=== PATIENT | female | born 2000 | race Hispanic/Latino ===

== ENCOUNTER 2022-09-16 06:39 | Day surgery (SDC) | payer BC, OTHER ==
[2022-09-14 09:59] LABS: BASOPHILS % (AUTO) 0.6 % (0.0-5.0); EOSINOPHILS % (AUTO) 1.6 % (0.0-8.0); HEMATOCRIT 42.6 % (36-48); LYMPHOCYTES % (AUTO) 46.2 % (21.0-51.0); MEAN CORPUSCULAR HEMOGLOBIN 28.2 pg (27.0-33.0); MEAN CORPUSCULAR HGB CONC 32.6 g/dL (32.0-36.0); MEAN CORPUSCULAR VOLUME 86.4 fL (79-99); MONOCYTES % (AUTO) 7.1 % (3.0-13.0); NEUTROPHILS % (AUTO) 44.3 % (40.0-77.0); PLATELET COUNT (AUTO) 464 K/uL (130-400); RED BLOOD CELL COUNT(AUTO) 4.93 MIL/uL (4.00-5.50); RED CELL DISTRIBUTION WIDTH 12.5 % (11.0-15.5); WHITE BLOOD COUNT (AUTO) 6.4 K/uL (4.8-10.8)
[2022-09-14 10:16] LABS: ALBUMIN 3.6 g/dL (3.5-5.0); BILIRUBIN,DIRECT 0.1 mg/dL (0.0-0.3); CREATININE 0.8 mg/dL (0.5-1.5); TOTAL PROTEIN, SERUM 7.7 g/dL (6.0-8.3)
[2022-09-14 10:21] LABS: INR 0.93 (0.85-1.15); PROTHROMBIN TIME 9.8 SEC (9.6-11.6)
[2022-09-14 10:23] LABS: PARTIAL THROMBOPLASTIN TIME 28.2 SEC (26.3-35.5)
[2022-09-14 10:28] VITALS: BP 137/88
[~2022-09-16] VITALS: Ht 162.6 cm; Wt 74.8 kg
[2022-09-16] VITALS (16 sets, daily range): BP systolic 125–145; BP diastolic 83–98
[~2022-09-16 06:39] MED LIST: BACITRACIN 28.4 GM OINT TP ONE; EPINEPHRINE PF 1MG (1:1,000) 1 MG/ML AMP ONE; ETON1VAG VG; LIDOCAINE 1%-EPI 1:100,000 20 ML VIAL IJ SCH
[2022-09-16] MEDS ORDERED: HYDROMORPHONE 1 MG INJ ONE (07:10)
[2022-09-16] MEDS ORDERED: GLYCOPYRROLATE 1 MG/5 ML SYRINGE ONE (07:14)
[2022-09-16] MEDS ORDERED: MIDAZOLAM HCL 1 MG/ML 2ML VIAL ONE (07:14)
[2022-09-16] MEDS ORDERED: PROPOFOL 10 MG/ML 20ML VIAL IV ONE ×2 (07:14→10:48)
[2022-09-16] MEDS ORDERED: LIDOCAINE PF 100MG/5ML (2%) SYRINGE 5ML ONE (07:14)
[2022-09-16] MEDS ORDERED: ROCURONIUM 10MG/1ML SYR 10 MG/ML ML ONE (07:15)
[2022-09-16] MEDS ORDERED: FENTANYL CITRATE PF 50 MCG/1 ML 2ML VIAL ONE (07:15)
[2022-09-16] MEDS ORDERED: PHENYLEPHRINE HCL 10 MG/ML 1ML VIAL IV ONE (07:17)
[2022-09-16] MEDS ORDERED: DEXAMETHASONE SOD PHOSPHATE 10MG/ML 1ML VIAL ONE (07:52)
[2022-09-16] MEDS ORDERED: DiphenhydrAMINE HCL 50 MG/ML VIAL ONE (07:52)
[2022-09-16] MEDS ORDERED: ONDANSETRON 4MG INJ ONE (08:16)
[2022-09-16] MEDS ORDERED: NEOSTIGMINE 5MG/5ML SYR IV ONE (08:43)
== END 2022-09-16 13:00 | disposition home or self-care (01) ==
LOC: DAH 06:39
PROVIDERS: ATTEND Otolaryngology Plastic Surgery within the Head & Neck
DX: J34.2 Deviated nasal septum (principal); Z20.822 Contact with and (suspected) exposure to COVID-19; J34.3 Hypertrophy of nasal turbinates; J34.89 Other specified disorders of nose and nasal sinuses; Z79.01 Long term (current) use of anticoagulants
CPT/HCPCS: 80076; 80048; 85025; 85610; 85730; 87426; 81025; 36415; 93005; 30930; 30520; A6260; A4663; A4649 ×2; J1200; J3010; J3490 ×2; J1170; J1100; J2710; J2001; J0171; J2250; J2704 ×2; J2405; J2370; A4215; A4223; A4222; A4221; A4600